=== PATIENT | female | born 1945 | race Caucasian/White ===

== ENCOUNTER → 2017-01-06 | Outpatient (CLI) | payer MEDICARE ==
[~2017-01-06] MED LIST: AMLODIPINE BESY10 MG PO; ASPIR 8181 MG PO; BUMEX 1MG TABLET1 MG PO; BUPROPION HCL75 MG PO; BUPROPION XL150 MG PO; COREG 25MG TAB25 MG PO; CRESTOR20 MG PO; HYDRALAZINE HCL25 MG PO; ISOSORBIDE MONO30 MG PO; JANUVIA25 MG PO; LEVEMIR FL100 UNIT/1 SQ; LISINOPRIL10 MG PO; MIRTAZAPINE7.5 MG PO; NEURONTIN 300300 MG PO; NITROSTAT 0.40.4 MG SL; NORCO 7.5-3251 EACH PO; NOVOLOG FL100 UNIT/1 SQ; PAROXETINE HCL40 MG PO; PERCOCET 5/325 T1 EA PO; PLAVIX 75 MG TA75 MG PO; PROTONIX40 MG PO; SPIRIVA18 MCG INH; SYMBICORT 160-1 INHA INH; TRAZODONE HCL100 MG PO; VENTOLIN HFA8 GM INH; VITAMIN B-12100 MC1 PO; VITAMIN D2000 UNI1 PO
== END ==
LOC: KOH-I 15:10
DX: M25.551 Pain in right hip (principal)
CPT/HCPCS: 73502